=== PATIENT | female | born 1980 | race Asian ===

== ENCOUNTER 2019-10-12 11:41 | Emergency (ER) | payer OTHER ==
[~2019-10-12] VITALS: Ht 157.5 cm; Wt 127.0 kg
[2019-10-12 11:43] VITALS: TEMP 98.7
[2019-10-12 12:58] LABS: PLATELET COUNT 313 K/uL (152-353)
[2019-10-12 13:09] LABS: SODIUM 140 mmol/L (136-145)
[2019-10-12 13:13] LABS: PARTIAL THROMBOPLASTIN TIME 26.8 SECONDS (24.5-33.6)
[2019-10-12 14:30] VITALS: BP 139/75
[2019-10-13] MEDS ORDERED: INDOMETHACIN50 MG PO ×2 (10:09)
== END 2019-10-12 15:01 | disposition still patient (30) ==
LOC: ED 11:41
DX: R07.89 Other chest pain (principal)
CPT/HCPCS: 80053; 81000; 82550; 84484; 85027; 85610; 85730; 93005; 99284

== ENCOUNTER 2019-10-12 13:57 | Observation (INO) | payer OTHER ==
[~2019-10-12] VITALS: Ht 157.5 cm; Wt 128.0 kg
[2019-10-12 15:29] VITALS: BP 151/80; TEMP 98.4; Ht 157.5 cm; Wt 128.0 kg
[2019-10-12 20:00] VITALS: BP 149/72; TEMP 98.3
[2019-10-13] VITALS: BP 121/75; TEMP 98.9
[2019-10-13 04:00] VITALS: BP 122/85; TEMP 98.1
[2019-10-13 05:40] LABS: PLATELET COUNT 261 K/uL (152-353)
[2019-10-13 05:47] LABS: POTASSIUM 3.9 mmol/L (3.6-5.2)
[2019-10-13 08:00] VITALS: BP 129/93; TEMP 97.2
[2019-10-13] MEDS ORDERED: INDOMETHACIN50 MG PO ×2 (10:09)
== END 2019-10-13 10:30 | disposition home or self-care (01) ==
LOC: MED/SURG 13:57
PROVIDERS: Internal Medicine Endocrinology, Diabetes & Metabolism
DX: R07.89 Other chest pain (principal); M94.0 Chondrocostal junction syndrome [Tietze]; E66.01 Morbid (severe) obesity due to excess calories; Z68.43 Body mass index [BMI] 50.0-59.9, adult; Z71.3 Dietary counseling and surveillance; D72.828 Other elevated white blood cell count
CPT/HCPCS: 36415; 80048; 82550; 84484; 85027; 93005; 94760; 99220; G0378; G0379; J1650; J2270; J2405

== ENCOUNTER 2020-11-30 09:34 | Emergency (ER) | payer OTHER ==
[~2020-11-30] VITALS: Ht 157.5 cm; Wt 127.9 kg
[~2020-11-30 09:34] MED LIST: INDOMETHACIN50 MG PO
[2020-11-30 09:39] VITALS: TEMP 98.3
[2020-11-30 10:51] LABS: PLATELET COUNT 275 K/uL (152-353)
[2020-11-30 11:01] LABS: POTASSIUM 3.6 mmol/L (3.6-5.2); SODIUM 138 mmol/L (136-145)
[2020-11-30 11:30] VITALS: BP 165/96
== END 2020-11-30 12:24 | disposition home or self-care (01) ==
LOC: ED 09:34
PROVIDERS: Emergency Medicine
DX: I10 Essential (primary) hypertension (principal); E66.8 Other obesity
CPT/HCPCS: 80048; 84484; 85027; 93005; 99283

== ENCOUNTER 2020-12-04 23:28 | Emergency (ER) | payer OTHER ==
[~2020-12-04] VITALS: Ht 157.5 cm; Wt 127.9 kg
[2020-12-05 00:46] LABS: POTASSIUM 3.6 mmol/L (3.6-5.2); SODIUM 138 mmol/L (136-145)
[2020-12-05 00:49] LABS: PLATELET COUNT 276 K/uL (152-353)
[2020-12-05 03:21] VITALS: BP 130/92; TEMP 98.1
== END 2020-12-05 03:21 | disposition home or self-care (01) ==
LOC: ED 23:28
PROVIDERS: Emergency Medicine Emergency Medical Services
DX: J18.9 Pneumonia, unspecified organism (principal); Z20.822 Contact with and (suspected) exposure to COVID-19
CPT/HCPCS: 36415; 80053; 81000; 84443; 84484; 85027; 87635; 93005; 96360; 99284; J2060; U0003

== ENCOUNTER 2020-12-10 16:32 | Emergency (ER) | payer OTHER ==
[~2020-12-10] VITALS: Ht 157.5 cm; Wt 121.1 kg
[2020-12-10 17:06] VITALS: TEMP 97
[2020-12-10 18:59] LABS: PLATELET COUNT 311 K/uL (152-353)
[2020-12-10 19:12] LABS: POTASSIUM 3.5 mmol/L (3.6-5.2); SODIUM 135 mmol/L (136-145)
[2020-12-10 22:30] VITALS: BP 129/78
== END 2020-12-10 22:14 | disposition home or self-care (01) ==
LOC: ED 16:32
PROVIDERS: Emergency Medicine Emergency Medical Services
DX: R07.89 Other chest pain (principal)
CPT/HCPCS: 36415; 80053; 84484; 85027; 99283

== ENCOUNTER 2020-12-12 15:25 | Emergency (ER) | payer OTHER ==
[~2020-12-12] VITALS: Ht 157.5 cm; Wt 121.1 kg
[2020-12-12 15:25] VITALS: TEMP 97.9
[2020-12-12 16:41] VITALS: BP 101/36
== END 2020-12-12 16:41 | disposition home or self-care (01) ==
LOC: ED 15:25
DX: F41.8 Other specified anxiety disorders (principal); R07.89 Other chest pain
CPT/HCPCS: 93005; 99282; 99283

== ENCOUNTER 2021-02-17 02:52 | Emergency (ER) | payer OTHER ==
[~2021-02-17] VITALS: Ht 157.5 cm; Wt 120.2 kg
[2021-02-17 04:44] LABS: PLATELET COUNT 319 K/uL (152-353)
[2021-02-17 04:57] LABS: POTASSIUM 3.1 mmol/L (3.6-5.2)
[2021-02-17 05:13] LABS: PARTIAL THROMBOPLASTIN TIME 26.2 SECONDS (24.5-33.6)
[2021-02-17 05:25] VITALS: BP 127/89; TEMP 98.5
== END 2021-02-17 05:35 | disposition home or self-care (01) ==
LOC: ED 02:52
PROVIDERS: Hospitalist
DX: R42 Dizziness and giddiness (principal); J32.8 Other chronic sinusitis
CPT/HCPCS: 36415; 80053; 80320; 81000; 81025; 82550; 83880; 84484; 85027; 85610; 85730; 93005; 96372; 99283; J0696

== ENCOUNTER 2021-04-12 03:26 | Emergency (ER) | payer OTHER ==
[~2021-04-12] VITALS: Ht 157.5 cm; Wt 120.2 kg
[2021-04-12 04:19] LABS: PLATELET COUNT 288 K/uL (152-353); POTASSIUM 3.5 mmol/L (3.6-5.2)
[2021-04-12 05:18] VITALS: BP 138/82; TEMP 98.8
== END 2021-04-12 05:18 | disposition home or self-care (01) ==
LOC: ED 03:26
PROVIDERS: Hospitalist
DX: R07.89 Other chest pain (principal); R09.1 Pleurisy
CPT/HCPCS: 36415; 80053; 82550; 84484; 85027; 85379; 93005; 96374; 99284; J1885

== ENCOUNTER 2021-07-10 22:43 | Emergency (ER) | payer BC ==
[~2021-07-10] VITALS: Ht 157.5 cm; Wt 120.7 kg
[2021-07-10 23:28] LABS: PLATELET COUNT 310 K/uL (152-353)
[2021-07-10 23:36] LABS: POTASSIUM 3.4 mmol/L (3.6-5.2); SODIUM 139 mmol/L (136-145)
[2021-07-11 00:01] VITALS: BP 135/65; TEMP 97.9
== END 2021-07-11 00:01 | disposition home or self-care (01) ==
LOC: ED 22:43
PROVIDERS: Emergency Medicine
DX: R06.09 Other forms of dyspnea (principal); Z72.3 Lack of physical exercise; E66.01 Morbid (severe) obesity due to excess calories
CPT/HCPCS: 36415; 80048; 84484; 85027; 85379; 93005; 99284

== ENCOUNTER 2021-10-10 19:46 | Emergency (ER) | payer BC ==
[~2021-10-10] VITALS: Ht 157.5 cm; Wt 117.9 kg
[2021-10-10 21:50] VITALS: BP 121/89; TEMP 98.7
== END 2021-10-10 21:50 | disposition home or self-care (01) ==
LOC: ED 19:46
DX: G43.909 Migraine, unspecified, not intractable, without status migrainosus (principal)
CPT/HCPCS: 96372; 99283; J1200; J1885; J2405

== ENCOUNTER 2021-11-24 10:13 | Emergency (ER) | payer BC ==
[~2021-11-24] VITALS: Ht 157.5 cm; Wt 119.3 kg
[2021-11-24 10:19] VITALS: TEMP 98.4
[2021-11-24 11:14] LABS: PLATELET COUNT 263 K/uL (152-353)
[2021-11-24 11:26] LABS: POTASSIUM 3.7 mmol/L (3.6-5.2)
[2021-11-24 13:12] VITALS: BP 121/73
== END 2021-11-24 13:12 | disposition home or self-care (01) ==
LOC: ED 10:13
PROVIDERS: Emergency Medicine Emergency Medical Services
DX: H83.03 Labyrinthitis, bilateral (principal)
CPT/HCPCS: 36415; 80053; 81002; 81015; 81025; 83735; 85027; 93005; 99283